=== PATIENT | female | born 1970 | race Caucasian/White ===

== ENCOUNTER 2016-05-12 22:47 | Emergency (ER) | payer BC ==
[~2016-05-12] VITALS: Ht 175.3 cm; Wt 85.5 kg
[2016-05-13] MEDS ORDERED: BIRTH CONTROL PILL PO (00:12)
[2016-05-13] MEDS ORDERED: PREDNISONE10 MG PO (00:14)
[2016-05-13] MEDS ORDERED: HOMATROP PO (00:15)
[2016-05-13] MEDS ORDERED: HYDROCODONE PO (00:15)
[2016-05-13 00:21] LABS: HEMATOCRIT 41.9 % (36.0-46.0); MCH 32.1 PG (29.0-34.0); MCHC 33.7 G/DL (30.0-36.0); MCV 95.4 FL (83-99); MEAN PLAT.VOLUME 10.6 uM^3 (9.5-12.4); PLATELET COUNT 284 K/uL (156-360); RBC DIS.WIDTH-CV 13.4 % (11.8-14.6); RBC DIS.WIDTH-SD 44.5 % (39-53); RED BLOOD COUNT 4.39 M/uL (3.80-5.20); WHITE BLOOD COUNT 18.4 K/uL (4.1-10.2)
[2016-05-13 00:49] LABS: CHLORIDE 104 mEq/L (99-109); POTASSIUM 4.1 mEq/L (3.7-5.4); SODIUM 137 mEq/L (136-147)
[2016-05-13 00:50] LABS: GLUCOSE 100 mg/dL (70-99)
[2016-05-13 00:52] LABS: ANION GAP 10 MEQ/L (2-14)
[2016-05-13 00:54] LABS: GFR ESTIMATE (CALCULATED) > 59 mL/min/
[2016-05-13 00:55] LABS: UREA NITROGEN (BUN) 14 mg/dL (9-23)
[2016-05-13 01:24] LABS: QUANTITATIVE HCG < 4.0 MIU/ML
[2016-05-13 02:01] LABS: ADD MIUA? YES; BILIRUBIN NEGATIVE; BLOOD MODERATE; COLOR YELLOW ((YELLOW)); GLUCOSE (STRIP) NEGATIVE; KETONES NEGATIVE; LEUKOCYTES SMALL; NITRITE NEGATIVE; PROTEIN (STRIP) NEGATIVE; SPECIFIC GRAVITY 1.029 (1.000-1.030); UROBILINOGEN 0.2 MG/DL (0.2-1.0)
[2016-05-13] MEDS ORDERED: VALIUM5 MG PO (02:24)
[2016-05-13] MEDS ORDERED: NORCO 5/3251 TABLET PO (02:24)
[2016-05-13 02:32] VITALS: BP 160/92
[2016-05-13 02:37] LABS: EPITHELIAL CELLS RARE; WHITE BLOOD CELLS 0-5 /HPF (0-5)
[2016-05-13 02:38] LABS: BACTERIA RARE; CASTS NONE SEEN /LPF; CRYSTALS NONE SEEN; MUCUS NONE SEEN; UCUL ADDED? NO
== END 2016-05-13 02:36 | disposition home or self-care (01) ==
LOC: RME 22:47 → EME 22:47 → RME 05-13 02:36
PROVIDERS: Physician Assistant
DX: M54.9 Dorsalgia, unspecified (principal); R31.9 Hematuria, unspecified
CPT/HCPCS: 71260; 80048; 81003; 84702; 85027; 99281; 99285; J1885; J3010; J7030